=== PATIENT | male | born 1975 | race Caucasian/White ===

== ENCOUNTER → 2018-12-18 | Outpatient (CLI) | payer OTHER ==
[~2018-12-18] MED LIST: BENTYL20 MG PO; K-DUR 20 MEQ T20 MEQ PO; PHENADOZ25 MG RC; ZOFRAN ODT4 MG PO; ZYRTEC 10 MG TA10 MG
== END ==
LOC: M.RAD 10:24
DX: J84.10 Pulmonary fibrosis, unspecified (principal); J18.1 Lobar pneumonia, unspecified organism; J02.9 Acute pharyngitis, unspecified; R52 Pain, unspecified